=== PATIENT | male | born 1995 | race Caucasian/White ===

== ENCOUNTER 2018-03-22 10:04 | Emergency (ER) | payer OTHER ==
[~2018-03-22] VITALS: Ht 188 cm; Wt 90.7 kg
[2018-03-22] MEDS ORDERED: CIPRO500 M1 PO (10:51)
--- NOTE | 2018-03-22 10:51 | ED ANKLE/FOOT INJURY COMPLAINT ---
History of Present Illness General Chief Complaint: Plantar Puncture Wound Stated Complaint: STEPPED ON A NAIL Source: patient Exam Limitations: no limitations Vital Signs & Intake/Output Vital Signs & Intake/Output Vital Signs Date Time Temp Pulse Resp B/P B/P Pulse O2 O2 Flow FiO2 Mean Ox Delivery Rate 03/22 1127 98.1 71 15 124/70 99 Room Air Room Air 03/22 1008 98.0 79 15 136/61 98 Room Air Room Air Allergies Coded Allergies: Penicillins (Intermediate, FULL BODY RASH 03/22/18) Reconcile Medications Ciprofloxacin HCl (Cipro) 500 MG TABLET 1 TAB PO BID puncture wound Ibuprofen 800 MG TABLET 1 TAB PO TID pain Triage Note: PT TO ED FOR C/C OF L FOOT PAIN 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 ABLE TO BEAR WEIGHT BUT WITH PAIN. NOT VISUALIZED IN TRIAGE. Triage Nurses Notes Reviewed? yes Occurred: just prior to arrival Duration: hour(s): Timing: single episode today Severity: mild, moderate Pain/Injury Location: Left: Foot. Method of Injury: puncture wound No Modifying Factors: none HPI: 22-year-old male comes into the emergency room for further evaluation of left foot pain. Patient reports that he stepped on a nail that went through his boot at work and into his foot. He is unsure on his last tetanus shot. Sharp throbbing pain. Continuous. Comes in for evaluation. (Virgil Castellano) Past History Travel History Traveled to [place] past 21 day No Medical History Any Pertinent Medical History? see below for history Neurological: NONE EENT: NONE Cardiovascular: NONE Respiratory: NONE Gastrointestinal: NONE Hepatic: NONE Renal: NONE Musculoskeletal: NONE Psychiatric: NONE Endocrine: NONE Blood Disorders: NONE Cancer(s): NONE BERRY GROWER/Reproductive: NONE Tetanus Vaccine: 03/22/18 Surgical History Surgical History: non-contributory Psychosocial History What is your primary language Malay Tobacco Use: Current Not Daily ETOH Use: denies use Illicit Drug Use: denies illicit drug use Family History Hx Contributory? No (Virgil Castellano) Review of Systems Review of Systems Constitutional: Reports: no symptoms. EENTM: Reports: no symptoms. Respiratory: Reports: no symptoms. Cardiovascular: Reports: no symptoms. GI: Reports: no symptoms. Genitourinary: Reports: no symptoms. Musculoskeletal: Reports: see HPI. Skin: Reports: see HPI. Neurological/Psychological: Reports: no symptoms. Hematologic/Endocrine: Reports: no symptoms. Immunologic/Allergic: Reports: no symptoms. All Other Systems: Reviewed and Negative (Virgil Castellano) Physical Exam Physical Exam General Appearance: well developed/nourished, mild distress Head: atraumatic Eyes: Bilateral: normal appearance. Ears, Nose, Throat: normal ENT inspection, hearing grossly normal Neck: normal inspection Cardiovascular/Respiratory: no respiratory distress Back: normal inspection Leg/Knee/Thigh Left: normal inspection Ankle Left: normal range of motion Foot Left: puncture wound left foot, 0.5 cm Neuro/Vascular: normal motor function, normal sensation Tendon: normal tendon function Psychiatric: awake, alert, oriented x 3 Skin: intact, normal color, warm/dry Diagram Feet Bottom: 1) (Virgil Castellano) Progress Differential Diagnosis: fracture, dislocation, sprain, contusion, soft tissue foreign body Plan of Care: Orders Procedure Date/time Status XRY-FOOT COMPLETE, LEFT 03/22 1013 Active Diagnostic Imaging: Viewed by Me: Radiology Read. Discussed w/RAD: Radiology Read. Radiology Impression: PATIENT: JESSI HERNANDEZ PRESENT AGE: 22 PATIENT ACCOUNT NO: [id number] : 97 LOCATION: [facility] ORDERING PHYSICIAN: Angel Gallagher DO SERVICE DATE: 03/22/18 EXAM TYPE: RAD - XRY-FOOT COMPLETE, LEFT EXAMINATION: XR FOOT, LEFT CLINICAL INFORMATION: Stepped on nail with question of foreign body COMPARISON: None TECHNIQUE: AP, lateral, and oblique views of the left foot. FINDINGS: The bones and soft tissues are normal. No fracture. Alignment is anatomic. Joint spaces are maintained. No radiopaque foreign body is seen. IMPRESSION: Normal left foot. No radiopaque foreign body is seen. DICTATED BY: Devonte Hickey MD DATE/ TIME DICTATED:03/22/181054 BLOOD COLLECTOR:CINTHIA DATE/TIME TRANSCRIBED: 03/22/181054 CONFIDENTIAL, DO NOT COPY WITHOUT APPROPRIATE AUTHORIZATION. < Electronically signed in Other Vendor System> SIGNED BY: Devonte Hickey MD 03/22/18 2219 Comments: 03/22/2018 11:28:54 AM Patient clinically looks well. No evidence of foreign body. Wound was irrigated with saline and peroxide and dressed with bacitracin and bulky dressing. Started on ciprofloxacin for prophylactic coverage of pseudomonas. (Virgil Castellano) Departure Departure Disposition: HOME OR SELF CARE Condition: Stable Clinical Impression Primary Impression: Puncture wound of left foot Referrals: Hailee Hargrove MD (PCP/Family) Additional Instructions: Take ciprofloxacin as prescribed. Warm soaks. Watch for signs of infection such as redness or discharge fever chills. Please go over all results of today's visit with your primary care doctor. Contact your primary care doctor to let them know you were here in the emergency room. There may be nonspecific findings which may not be related to your visit today here in the emergency room but may require further evaluation and chronic monitoring by your primary care doctor. If you had a laceration today the chance of foreign body always remains. You should follow-up with your primary care doctor for recheck in 3-5 days for a wound check. If you had an x-ray done there is a chance that a fracture could have been missed on initial read and you should follow-up with your primary care doctor for repeat x-rays if symptoms persist. If your blood pressure was elevated here in the emergency room please have rechecked by [facility] primary care doctor within the next 48. If you were prescribed a narcotic here in the emergency room or any type of controlled substances you're not allowed to drive while taking this medication or operate any type of heavy machinery. Narcotics can make you feel lightheaded dizziness nausea and can cause constipation. 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 Thank you for choosing [facility] emergency room. Please return to the emergency room immediately if you have any other concerns worsening of symptoms. Departure Forms: Customer Survey General Discharge Information Prescriptions: Current Visit Scripts Ciprofloxacin HCl (Cipro) 1 TAB PO BID #14 TAB Ibuprofen 1 TAB PO TID #30 TAB (Virgil Castellano) PA/SALES TRAINING MANAGER Co-Sign Statement Statement: ED Attending supervision documentation- [] I saw and evaluated the patient. I have also reviewed all the pertinent lab results and diagnostic results. I agree with the findings and the plan of care as documented in the PA's/SALES TRAINING MANAGER's documentation. [X] I have reviewed the ED Record and agree with the PA's/SALES TRAINING MANAGER's documentation. [] Additions or exceptions (if any) to the PAs/SALES TRAINING MANAGER's note and plan are summarized below: [] (Angel Gallagher DO)
--- NOTE | 2018-03-22 10:59 | RADIOLOGY REPORT ---
EXAMINATION: XR FOOT, LEFT CLINICAL INFORMATION: Stepped on nail with question of foreign body COMPARISON: None TECHNIQUE: AP, lateral, and oblique views of the left foot. FINDINGS: The bones and soft tissues are normal. No fracture. Alignment is anatomic. Joint spaces are maintained. No radiopaque foreign body is seen. IMPRESSION: Normal left foot. No radiopaque foreign body is seen.
[2018-03-22] MEDS ORDERED: IBUPROFEN800 M1 PO (11:18)
[2018-03-22 11:27] VITALS: BP 124/70
== END 2018-03-22 11:27 ==
LOC: ERH 10:04
DX: S91.332A Puncture wound without foreign body, left foot, initial encounter (principal); W45.0XXA Nail entering through skin, initial encounter; Y92.9 Unspecified place or not applicable; Y93.9 Activity, unspecified
CPT/HCPCS: 73630-LT; 90471; 90714